=== PATIENT | male | born 1990 | race Caucasian/White ===

== ENCOUNTER 2018-03-30 21:48 | Inpatient (IN) ==
[2018-03-30] MEDS ORDERED: Morphine Inj 4 MG/ML Vial IV.PUSH ONE (22:29)
[2018-03-30] MEDS ORDERED: ceFAZolin 2 GM Premix Inj 2 GM/50 ML PIGGYBACK IV.SIG ONE (22:29)
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
[2018-03-30 22:51] LABS: Baso # (Auto) 0.1 th/mm3 (0.0-0.2); Baso % (Auto) 0.6 % (0.0-2.0); Eos # (Auto) 0.5 th/mm3 (0.0-0.4); Eos % (Auto) 4.1 % (0.0-4.0); Hematocrit 42.5 % (39.0-51.0); Hemoglobin 15.1 gm/dL (13.0-17.0); Lymph # (Auto) 1.3 th/mm3 (1.0-4.8); Lymph % (Auto) 9.8 % (9.0-44.0); Mean Corpuscular HGB Conc 35.6 % (32.0-36.0); Mean Corpuscular Volume 81.7 fL (80.0-100.0); Mean Platelet Volume 8.1 fL (7.0-11.0); Mono # (Auto) 0.8 th/mm3 (0.0-0.9); Mono % (Auto) 5.9 % (0.0-8.0); Neut # (Auto) 10.7 th/mm3 (1.8-7.7); Neut % (Auto) 79.6 % (16.0-70.0); Platelet Count 271 th/mm3 (150-450); Red Blood Count 5.21 mil/mm3 (4.50-5.90); Red Cell Distribution Width 13.3 % (11.6-17.2); White Blood Count 13.4 th/mm3 (4.0-11.0)
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
[2018-03-30] MEDS ORDERED: Morphine Sulfate Inj 8 MG/ML Vial IV.PUSH ONE (23:06)
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
[2018-03-30] MEDS ORDERED: Morphine Sulfate Inj 8 MG/ML Vial ONE (23:09)
[2018-03-30 23:10] LABS: Activated Partial Thrombo Time 23.3 sec (24.3-30.1)
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
[2018-03-30 23:27] LABS: Calcium 8.7 mg/dL (8.5-10.1); Carbon Dioxide 27.6 meq/L (21.0-32.0); Potassium 3.4 meq/L (3.5-5.1)
[2018-03-30] MEDS ORDERED: Gentamicin Inj 80 MG in Sodium Chlor 0.9% Inj 100 ML IV.SIG ONE (23:45)
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
[2018-03-31] MEDS ORDERED: Morphine Inj 4 MG, Morphine Inj 2 MG IV.PUSH ONE ×2 (00:27)
[2018-03-31] MEDS ORDERED: HYDROmorphone PF Inj 1 MG/ML Ampul IV.PUSH ONE (01:20)
[2018-03-31] MEDS ORDERED: HYDROmorphone PF Inj 2 MG/ML Vial ONE (01:25)
[2018-03-31] MEDS ORDERED: HYDROmorphone PF Inj 1 MG/ML Ampul IV.PUSH PRN (01:25)
[2018-03-31] MEDS ORDERED: Morphine Sulfate Inj 8 MG/ML Vial IM PRN (01:27)
[2018-03-31] MEDS ORDERED: Chlorhexidine Gluconate 2% 1 Pack (2 Cloths) TOPICAL SCH (04:30)
[2018-03-31] MEDS ORDERED: Metoprolol Tartrate 25 MG Tablet PO SCH (04:30)
[2018-03-31] MEDS ORDERED: Sodium Chlor 0.9% Inj 500 ML IV.SIG SCH (05:00)
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
[2018-03-31] MEDS ORDERED: Morphine Inj 4 MG/ML Vial IV.PUSH PRN (06:49)
[2018-03-31] MEDS ORDERED: ceFAZolin 2 GM Premix Inj 2 GM/50 ML PIGGYBACK IV.SIG ONE (06:59)
[2018-03-31] MEDS ORDERED: Bupivacaine/Epinephrine Inj 0.25% 50 ML Vial ONE (06:59)
[2018-03-31] MEDS ORDERED: CETIRIZINE PSEUDOEPHEDRINE PO SCH (07:00)
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
--- NOTE | 2018-03-31 08:44 | P.OP ---
- Preoperative Diagnosis (1) Open bimalleolar fracture of right ankle (2) Ankle syndesmosis disruption Date of procedure: 03/31/18 Procedure: Irrigation and debridement of open right ankle fracture, open reduction internal fixation of right ankle bimalleolar fracture, open reduction internal fixation right ankle syndesmosis Anesthesia: GETA Surgeon: Jono Prieto MD Training Lead: FELICITA Hidalgo PA-C The surgical procedure was assisted by my physician sugar laboratory assistant. My P.A. presence was necessary throughout this case for the manipulation and positioning of the surgical extremity. My P.A. was assisting me throughout the duration of this procedure. The skill set of a physician sugar laboratory assistant was medically necessary to complete this procedure. During the surgical case the surgical elastic knitter hand frame was working at the back table and the physician sugar laboratory assistant was directly assisting me. Operation and Findings: Implants used: ITS Plan of activity: Nonweightbearing Details of procedure: Patient was seen and evaluated preoperatively and found to have a displaced open right ankle fracture. Informed consent was obtained after a detailed discussion of risk and benefits of surgery. The operative site was marked. Patient was brought to the OR, placed on the OR table, and given IV sedation and general endotracheal anesthesia. IV antibiotics were given preoperatively. A timeout procedure was performed. The left leg was prepped with alcohol followed by Hibiclens and draped in the usual sterile fashion. Procedure began with irrigation and debridement of the open fracture. There was a 5 cm open laceration of the medial malleolus. Laceration was extended proximally distally. The fracture site was exposed. The fracture was cleaned with curettes. Overall the wound appeared to be clean. After thorough excisional debridement was performed, soft tissue and bone were irrigated with pulsatile lavage. Next, attention was turned towards the distal fibula. A 5-inch incision was made over the distal fibula. The subcutaneous tissue was dissected with Bovie. The fracture site was visualized. The fracture site was cleaned with curets. The fracture was now reduced. The fracture keyed into anatomic alignment. Fracture tenaculums and K-wires were used to hold provisional fixation. A plate was selected. The plate was provisionally held to bone with K-wires. 3.5 cortical screws were used to compress the plate to bone. Multiple screws were placed above and below the fracture. Next attention was turned towards the medial malleolus. Fracture was visualized through the traumatic laceration. Fracture was cleaned with curettes. Fracture was now reduced and keyed into anatomic alignment. K wires were used to hold provisional fixation. 2 guidepins for the 4.0 cannulated screws were placed in a retrograde fashion across the fracture. Fluoroscopy was used to confirm guidepin placement. Cannulated drill was placed over the guidepin. 2 appropriate length screws were now placed. Good compression was applied. Fluoroscopy confirmed well aligned fracture with well-placed hardware. Next, attention was turned to the syndesmosis. The syndesmosis was stressed. There was widening of the syndesmosis with external rotation of the ankle. The syndesmosis was now held in a reduced position with the ankle in neutral position. Two cortical screws were now placed through the fibula plate into the tibia. Fluoroscopy confirmed appropriate screw placement with well-aligned syndesmosis. Incisions were thoroughly irrigated. The subcutaneous tissue was closed with 3-0 PDS and the skin was closed with 3-0 nylon. Sterile dressings were applied. A well molded well-padded splint was applied. The patient was transferred to Recovery in stable condition. Needle and sponge counts were correct.
[2018-03-31] MEDS ORDERED: Gentamicin Inj 80 MG in Sodium Chlor 0.9% Inj 100 ML IV.SIG SCH (09:00)
[2018-03-31] MEDS ORDERED: Post-op Orders (for Pharmacy) OTHER STA (09:04)
[2018-03-31] MEDS ORDERED: fentaNYL Citrate Inj 100 MCG/2 ML Ampul ONE (09:09)
[2018-03-31] MEDS: Ketorolac Inj 30 MG/ML (IVP) Vial IV.PUSH SCH ×2 (09:12→22:07)
--- NOTE | 2018-03-31 10:04 | XR ---
EXAM DATE: 03/31/2018 9:53 AM EDT AGE/SEX: 28 years / Male INDICATIONS: Open rigid internal fixation of a right ankle fracture. CLINICAL DATA: This is the patient's subsequent encounter. Patient reports that signs and symptoms h ave been present for 2 days and indicates a pain score of Nonresponsive. MEDICAL/SURGICAL HISTORY: None. None. COMPAR[place] [facility] [place] 2[place]/30/2018. . FINDINGS: Multiple views of the right ankle were obtained and now demonstrate that patient is status post open rigid internal fixation with placement of screw plate fixation device transfixing the distal fibular fracture. 2 lag-type screws have been placed in the medial malleolus transfixing the medial malleolar fracture fragment. The fracture fragments are now in anatomic alignment. The ankle mortise is now co ngruent. CONCLUSION: Status post open rigid internal fixation. Electronically signed by: Eriberto Ascencio MD 03/31/2018 10:03 AM EDT
[2018-03-31] MEDS: Loratadine/Pseudoephedrine 12HR Tablet PO SCH ×2 (10:07→22:08)
[2018-03-31] MEDS: Senna/Docusate Sodium 8.6/50 MG Tablet PO SCH ×2 (10:07→22:08)
[2018-03-31] MEDS: Gentamicin Inj 80 MG in Sodium Chlor 0.9% Inj 100 ML IV.SIG SCH ×2 (10:29→17:14)
[2018-03-31] MEDS ORDERED: Lidocaine PF 1% Inj 5 ML Syringe INFILTRATN ONE (12:00)
[2018-03-31] MEDS ORDERED: Metoprolol Inj 5 MG/5 ML Vial IV.PUSH ONE (12:00)
[2018-03-31] MEDS: ceFAZolin 2 GM Premix Inj 2 GM/50 ML PIGGYBACK IV.SIG SCH ×2 (12:20→21:00)
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
[2018-03-31 17:38] LABS: Eos % (Auto) 0.1 % (0.0-4.0); Hematocrit 39.1 % (39.0-51.0); Hemoglobin 13.4 gm/dL (13.0-17.0); Lymph # (Auto) 0.5 th/mm3 (1.0-4.8); Lymph % (Auto) 3.7 % (9.0-44.0); Mean Corpuscular HGB Conc 34.2 % (32.0-36.0); Mean Corpuscular Hemoglobin 28.4 pg (27.0-34.0); Mean Platelet Volume 8.5 fL (7.0-11.0); Mono # (Auto) 0.6 th/mm3 (0.0-0.9); Mono % (Auto) 4.5 % (0.0-8.0); Neut # (Auto) 11.7 th/mm3 (1.8-7.7); Neut % (Auto) 91.7 % (16.0-70.0); Platelet Count 290 th/mm3 (150-450); Red Blood Count 4.71 mil/mm3 (4.50-5.90); Red Cell Distribution Width 13.6 % (11.6-17.2); White Blood Count 12.7 th/mm3 (4.0-11.0)
[2018-03-31 17:53] LABS: Calcium 8.6 mg/dL (8.5-10.1); Carbon Dioxide 29.4 meq/L (21.0-32.0); Potassium 4.1 meq/L (3.5-5.1)
[2018-04-01] MEDS: Gentamicin Inj 80 MG in Sodium Chlor 0.9% Inj 100 ML IV.SIG SCH ×3 (02:14→18:17)
[2018-04-01 04:25] LABS: Baso % (Auto) 0.4 % (0.0-2.0); Eos # (Auto) 0.1 th/mm3 (0.0-0.4); Eos % (Auto) 0.7 % (0.0-4.0); Hematocrit 35.3 % (39.0-51.0); Hemoglobin 12.2 gm/dL (13.0-17.0); Lymph # (Auto) 1.1 th/mm3 (1.0-4.8); Lymph % (Auto) 7.9 % (9.0-44.0); Mean Corpuscular HGB Conc 34.5 % (32.0-36.0); Mean Corpuscular Hemoglobin 28.5 pg (27.0-34.0); Mean Corpuscular Volume 82.6 fL (80.0-100.0); Mean Platelet Volume 8.4 fL (7.0-11.0); Mono # (Auto) 1.1 th/mm3 (0.0-0.9); Neut # (Auto) 11.3 th/mm3 (1.8-7.7); Platelet Count 243 th/mm3 (150-450); Red Blood Count 4.28 mil/mm3 (4.50-5.90); Red Cell Distribution Width 13.4 % (11.6-17.2); White Blood Count 13.6 th/mm3 (4.0-11.0)
[2018-04-01 04:44] LABS: Anion Gap 6 meq/L (5-15); Blood Urea Nitrogen 10 mg/dL (7-18); Calcium 8.5 mg/dL (8.5-10.1); Carbon Dioxide 28.7 meq/L (21.0-32.0); Chloride 107 meq/L (98-107); Glomerular Filtration Rate Greater Than 89 mL/min (>89); Glucose,Random 108 mg/dL (74-106); Potassium 3.7 meq/L (3.5-5.1); Sodium 142 meq/L (136-145)
[2018-04-01] MEDS: ceFAZolin 2 GM Premix Inj 2 GM/50 ML PIGGYBACK IV.SIG SCH ×3 (05:55→21:54)
--- NOTE | 2018-04-01 08:51 | P.PNOP ---
Subjective Interval history: Resting comfortably with no new complaints Physical Exam Vital signs: Vital Signs 03/31/18 09:00 03/31/18 09:15 03/31/18 09:30 Temperature 98.4 F 98.4 F Pulse Rate 98 H 89 95 H Respiratory Rate 16 17 17 Blood Pressure 147/81 H 146/85 H 134/77 Pulse Oximetry 100 100 95 03/31/18 12:00 03/31/18 13:55 03/31/18 14:23 Temperature 97.9 F Pulse Rate 88 Respiratory Rate 16 18 17 Blood Pressure 130/65 Pulse Oximetry 98 03/31/18 16:00 03/31/18 17:14 03/31/18 17:44 Temperature 97.9 F Pulse Rate 87 Respiratory Rate 16 18 18 Blood Pressure 122/63 Pulse Oximetry 96 03/31/18 20:00 04/01/18 00:00 04/01/18 04:00 Temperature 97.9 F 98.0 F 97.8 F Pulse Rate 93 H 84 91 H Respiratory Rate 17 17 18 Blood Pressure 128/61 111/57 L 129/57 L Pulse Oximetry 96 96 96 Intake & Output 03/31/18 04/01/18 04/01/18 18:59 06:59 18:59 Intake Total 1536 / 1536 152 / 152 Output Total 650 / 650 900 / 900 Balance 886 / 886 -748 / -748 Weight 111.4 kg Intake: IV 456 / 456 152 / 152 Gentamicin Inj 80 MG In NS Inj 306 / 306 102 / 102 100 ML @ 204 mls/hr IV.SIG Q8H NANCY Rx#:[id number] Ancef 2 GM Premix Inj 2 gm In 150 / 150 50 / 50 50 ml @ 100 mls/hr IV.SIG Q8H NANCY Rx#:[id number] Oral 480 / 480 Anesthesia Amount 600 / 600 Output: Urine 600 / 600 900 / 900 Estimated Blood Loss 50 / 50 Other: # Voids 3 Date of Last Bowel Movement 03/30/18 Narrative: Right lower extremity: Full range of motion neurovascularly intact with hip and knee. Splint is intact and has no drainage. He has intact sensation distally in all toes. Good capillary refill and has good movement of toes Results - Labs CBC & Chem 7: 04/01/18 03:51 04/01/18 03:51 Laboratory Results - last 24 hr 03/31/18 03/31/18 04/01/18 17:00 17:00 03:51 WBC 12.7 H 13.6 H RBC 4.71 4.28 L Hgb 13.4 12.2 L Hct 39.1 35.3 L MCV 83.0 82.6 MCH 28.4 28.5 MCHC 34.2 34.5 RDW 13.6 13.4 Plt Count 290 243 MPV 8.5 8.4 Neut % (Auto) 91.7 H 83.0 H Lymph % (Auto) 3.7 L 7.9 L Jewell % (Auto) 4.5 8.0 Eos % (Auto) 0.1 0.7 Baso % (Auto) 0.0 0.4 Neut # (Auto) 11.7 H 11.3 H Lymph # (Auto) 0.5 L 1.1 Jewell # (Auto) 0.6 1.1 H Eos # (Auto) 0.0 0.1 Baso # (Auto) 0.0 0.0 WBC Differential . . Differential Comment Auto diff final Auto diff final Sodium 140 Potassium 4.1 Chloride 107 Carbon Dioxide 29.4 Anion Gap 4 L BUN 10 Creatinine 1.02 Estimated GFR 87 L Random Glucose 132 H Calcium 8.6 04/01/18 03:51 WBC RBC Hgb Hct MCV MCH MCHC RDW Plt Count MPV Neut % (Auto) Lymph % (Auto) Jewell % (Auto) Eos % (Auto) Baso % (Auto) Neut # (Auto) Lymph # (Auto) Jewell # (Auto) Eos # (Auto) Baso # (Auto) WBC Differential Differential Comment Sodium 142 Potassium 3.7 Chloride 107 Carbon Dioxide 28.7 Anion Gap 6 BUN 10 Creatinine 0.76 Estimated GFR Greater than 89 Random Glucose 108 H Calcium 8.5 - Imaging Impressions Ankle X-Ray 03/31/18 00:00 CONCLUSION: Status post open rigid internal fixation. Assessment and Plan - Assessment and Plan Open right bimalleolar ankle fracture post irrigation debridement and ORIF POD 1 Nonweightbearing right lower extremity Elevation to decrease swelling Continue antibiotics. He will need to be on IV antibiotics for 48 hours prior to discharge. We will plan on discharge tomorrow Incentive spirometry Follow-up with Dr. Mendez or PA in 2 weeks
[2018-04-01] MEDS: Senna/Docusate Sodium 8.6/50 MG Tablet PO SCH ×2 (10:18→22:06)
[2018-04-01] MEDS: Loratadine/Pseudoephedrine 12HR Tablet PO SCH ×2 (10:18→22:04)
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
[2018-04-02] MEDS: Gentamicin Inj 80 MG in Sodium Chlor 0.9% Inj 100 ML IV.SIG SCH (02:42)
[2018-04-02] MEDS: ceFAZolin 2 GM Premix Inj 2 GM/50 ML PIGGYBACK IV.SIG SCH (05:23)
--- NOTE | 2018-04-02 06:39 | P.PNOP ---
Subjective Interval history: POD 2 s/p ORIF open right ankle fx Doing well. Pain improving. Ambulating with a walker. Physical Exam Vital signs: Vital Signs 04/01/18 08:00 04/01/18 12:00 04/01/18 16:00 Temperature 98.0 F 98.0 F 98.0 F Pulse Rate 85 84 94 H Respiratory Rate 16 16 16 Blood Pressure 124/57 L 141/68 H 127/64 Pulse Oximetry 97 94 L 96 04/01/18 18:05 04/01/18 20:00 04/01/18 23:13 Temperature 98.3 F Pulse Rate 97 H Respiratory Rate 18 4 L Blood Pressure 142/70 H Pulse Oximetry 96 96 04/02/18 00:00 04/02/18 04:00 Temperature 98.3 F 97.8 F Pulse Rate 89 89 Respiratory Rate 18 18 Blood Pressure 128/70 131/60 Pulse Oximetry 96 95 Intake & Output 04/01/18 04/01/18 04/02/18 06:59 18:59 06:59 Intake Total 202 / 202 102 / 102 1174 / 1174 Output Total 900 / 900 900 / 900 Balance -698 / -698 102 / 102 274 / 274 Weight 111.4 kg 109.8 kg Intake: IV 202 / 202 102 / 102 354 / 354 Gentamicin Inj 80 MG In NS Inj 102 / 102 102 / 102 204 / 204 100 ML @ 204 mls/hr IV.SIG Q8H NANCY Rx#:[id number] Ancef 2 GM Premix Inj 2 gm In 100 / 100 150 / 150 50 ml @ 100 mls/hr IV.SIG Q8H NANCY Rx#:[id number] Oral 820 / 820 Output: Urine 900 / 900 900 / 900 Other: Date of Last Bowel Movement 03/30/18 # Bowel Movements 0 Narrative: RLE: Short leg splint intact. Neurovascularly intact. Results - Labs CBC & Chem 7: 04/01/18 03:51 04/01/18 03:51 Assessment and Plan - Assessment and Plan 1) Open right bimalleolar ankle fracture post irrigation debridement and ORIF POD 2 Nonweightbearing right lower extremity Elevation to decrease swelling Plan for discharge home today once IV antibiotics are completed Incentive spirometry Follow-up with Dr. Mendez or PA in 2 weeks
[2018-04-02] MEDS: Senna/Docusate Sodium 8.6/50 MG Tablet PO SCH ×2 (09:27→20:22)
[2018-04-02] MEDS: Loratadine/Pseudoephedrine 12HR Tablet PO SCH ×2 (09:28→22:47)
--- NOTE | 2018-04-02 11:26 | P.DCO ---
- Physical Therapy Order: Evaluate and treat, Improve ambulation, Strength and gait training - Home Health Nursing Order: Nursing assessment with vital signs - Certification I have seen patient Anshul Tabares on 04/02/18. My clinical findings support the need for the requested home health care services because: Limited mobility due to disease progression I certify that my clinical findings support that this patient is homebound because: Post-op weakness
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
--- NOTE | 2018-04-03 06:42 | P.PNOP ---
Subjective Interval history: POD 3 s/p ORIF right open ankle Doing well. Pain well controlled. Ambulating with a walker. Physical Exam Vital signs: Vital Signs 04/02/18 08:00 04/02/18 10:29 04/02/18 11:16 Temperature 98.2 F Pulse Rate 96 H Respiratory Rate 18 9 L Blood Pressure 129/60 Pulse Oximetry 97 96 04/02/18 12:00 04/02/18 14:01 04/02/18 16:00 Temperature 98.4 F 98.2 F Pulse Rate 92 H 92 H Respiratory Rate 18 20 18 Blood Pressure 116/61 119/72 Pulse Oximetry 96 98 04/02/18 18:07 04/02/18 20:00 04/03/18 00:00 Temperature 98.3 F 99 F Pulse Rate 93 H 102 H Respiratory Rate 20 18 Blood Pressure 137/67 136/61 Pulse Oximetry 98 96 97 Intake & Output 04/02/18 04/02/18 04/03/18 06:59 18:59 06:59 Intake Total 1174 / 1174 600 / 600 480 / 480 Output Total 900 / 900 Balance 274 / 274 600 / 600 480 / 480 Weight 109.8 kg Intake: IV 354 / 354 Gentamicin Inj 80 MG In NS Inj 204 / 204 100 ML @ 204 mls/hr IV.SIG Q8H NANCY Rx#:[id number] Ancef 2 GM Premix Inj 2 gm In 150 / 150 50 ml @ 100 mls/hr IV.SIG Q8H NANCY Rx#:[id number] Oral 820 / 820 600 / 600 480 / 480 Output: Urine 900 / 900 Other: # Voids 3 Date of Last Bowel Movement 03/30/18 04/01/18 # Bowel Movements 0 1 Narrative: RLE: Splint present and intact. Clean and dry. Full sensation to toes. Results - Labs CBC & Chem 7: 04/01/18 03:51 04/01/18 03:51 Assessment and Plan - Assessment and Plan 1) Open right bimalleolar ankle fracture post irrigation debridement and ORIF POD 3 Nonweightbearing right lower extremity Elevation to decrease swelling Plan for discharge home today once IV antibiotics are completed Incentive spirometry Follow-up with Dr. Mendez or [place] in 2 weeks
[2018-04-03] MEDS: Senna/Docusate Sodium 8.6/50 MG Tablet PO SCH (08:55)
[2018-04-03] MEDS: Loratadine/Pseudoephedrine 12HR Tablet PO SCH (11:02)
== END 2018-04-03 13:48 | disposition home health service (06) ==
LOC: NEPE 21:48 → NEDA 03-31 00:46 → N06 03-31 03:30
PROVIDERS: ADMIT Surgery; ATTEND Surgery
PROC: ORIFANK (2018-03-31 07:31)